=== PATIENT | female | born 1945 | race Caucasian/White ===

== ENCOUNTER → 2017-05-01 | Outpatient (CLI) | payer MEDICARE ==
[~2017-05-01] MED LIST: AUGM875T PO; LEVE500T8 PO; MISC-163; NAPR500T2 PO; PHEN100C PO; PHEN300C3 PO; TYLETAB34 PO; WALKER WHEELS/F1 MIS
== END ==
LOC: CLAB 11:04
PROVIDERS: ATTEND Psychiatry & Neurology Neurology
DX: G40.909 Epilepsy, unspecified, not intractable, without status epilepticus (principal)
CPT/HCPCS: 36415; 80177; 80185

== ENCOUNTER → 2017-06-09 | Outpatient (CLI) | payer MEDICARE | LOC: CLAB 11:11 | PROVIDERS: ATTEND Psychiatry & Neurology Neurology | DX: G40.909 Epilepsy, unspecified, not intractable, without status epilepticus (principal) | CPT/HCPCS: 36415; 80177; 80185 ==

== ENCOUNTER → 2017-09-08 | Outpatient (CLI) | payer MEDICARE ==
[2017-09-08 12:38] LABS: AUTOMATED NEUTROPHIL # 7.3 TH/MM3 (1.8-7.7); BASOPHIL # 0.1 TH/MM3 (0-0.2); BASOPHIL % 0.7 % (0.0-2.0); EOSINOPHIL # 0.3 TH/MM3 (0-0.4); EOSINOPHIL % 3.2 % (0.0-4.0); HEMATOCRIT 37.8 % (35.0-46.0); HEMOGLOBIN 13.5 GM/DL (11.6-15.3); LYMPH % 9.6 % (9.0-44.0); LYMPHOCYTE # 0.9 TH/MM3 (1.0-4.8); MEAN CELL VOLUME 91.9 FL (80.0-100.0); MEAN CORPUSCULAR HEMOGLOBIN 32.9 PG (27.0-34.0); MEAN CORPUSCULAR HGB CONC 35.8 % (32.0-36.0); MEAN PLATELET VOLUME 6.7 FL (7.0-11.0); MONO % 9.7 % (0.0-8.0); MONOCYTE # 0.9 TH/MM3 (0-0.9); NEUT % 76.8 % (16.0-70.0); PLATELET COUNT 282 TH/MM3 (150-450); RED BLOOD COUNT 4.11 MIL/MM3 (4.00-5.30); RED CELL DISTRIBUTION WIDTH 13.1 % (11.6-17.2); WHITE BLOOD COUNT 9.5 TH/MM3 (4.0-11.0)
[2017-09-08 12:44] LABS: BACTERIA, URINE RARE /hpf; BILIRUBIN, URINE NEG (NEG); BLOOD, URINE NEG (NEG); GLUCOSE,URINE NEG (NEG); HYALINE CAST, URINE 3 /lpf (RARE); KETONE, URINE NEG (NEG); MUCUS URINE FEW /lpf (OCC); NITRITE,URINE NEG (NEG); SQUAMOUS EPITHELIAL CELL URINE 3 /hpf (0-5); URINE COLOR YELLOW (YELLW/STRAW); URINE LEUKOCYTE ESTERASE LARGE (NEG)
[2017-09-08 13:05] LABS: AST (GOT) 23 U/L (15-37); BICARBONATE 33.5 MEQ/L (21.0-32.0); BLOOD UREA NITROGEN 23 MG/DL (7-18); CALCIUM 8.5 MG/DL (8.5-10.1); CHLORIDE 101 MEQ/L (98-107); GLOMERULAR FILTRATION RATE 99 ML/MIN (>89); GLUCOSE,FASTING 126 MG/DL (74-99); SODIUM (NA) 140 MEQ/L (136-145)
[2017-09-08 13:06] LABS: ALT (GPT) 17 U/L (10-53)
[2017-09-08 13:08] LABS: ALKALINE PHOSPHATASE 78 U/L (45-117); TOTAL BILIRUBIN ADULT 0.2 MG/DL (0.2-1.0); TOTAL PROTEIN 6.4 GM/DL (6.4-8.2)
== END ==
LOC: CLAB 11:52
PROVIDERS: ATTEND Psychiatry & Neurology Neurology
DX: G40.909 Epilepsy, unspecified, not intractable, without status epilepticus (principal); I10 Essential (primary) hypertension
CPT/HCPCS: 36415; 80053; 80177; 80185; 81001; 85025

== ENCOUNTER → 2017-10-10 | Outpatient (CLI) | payer MEDICARE | LOC: CLAB 13:56 | PROVIDERS: ATTEND Psychiatry & Neurology Neurology | DX: G40.909 Epilepsy, unspecified, not intractable, without status epilepticus (principal) | CPT/HCPCS: 36415; 80177; 80185 ==

== ENCOUNTER → 2017-10-17 | Outpatient (CLI) | payer MEDICARE | LOC: CLAB 10:47 | PROVIDERS: ATTEND Psychiatry & Neurology Neurology | DX: G40.909 Epilepsy, unspecified, not intractable, without status epilepticus (principal) | CPT/HCPCS: 36415; 80177; 80185 ==

== ENCOUNTER → 2017-10-20 | Outpatient (CLI) | payer MEDICARE ==
[2017-10-20 12:35] LABS: GLUCOSE,FASTING 82 MG/DL (74-99)
== END ==
LOC: CLAB 11:26
PROVIDERS: ATTEND Family Medicine
DX: R30.0 Dysuria (principal); R73.01 Impaired fasting glucose
CPT/HCPCS: 36415; 82947; 83036

== ENCOUNTER → 2017-10-31 | Outpatient (CLI) | payer MEDICARE | LOC: CLAB 11:15 | PROVIDERS: ATTEND Psychiatry & Neurology Neurology | DX: G40.909 Epilepsy, unspecified, not intractable, without status epilepticus (principal) | CPT/HCPCS: 36415; 80177; 80185 ==

== ENCOUNTER 2017-11-13 12:32 | Emergency (ER) | payer MEDICARE ==
[~2017-11-13] VITALS: Ht 162.6 cm; Wt 60.0 kg
[2017-11-13 12:40] VITALS: BP 156/70; PULSE 77; RESP 16; TEMP 98; O2SAT 99
[2017-11-13] MEDS ORDERED: SODIUM CHLOR 0.9% 1000 ML INJ 1,000 ML IV SCH (13:19)
[2017-11-13] MEDS ORDERED: KETOROLAC TROMETHAMINE 30 MG/ML (IVP) VIAL IVP ONE (13:30)
[2017-11-13] MEDS ORDERED: ONDANSETRON ODT 4 MG TAB PO ONE (13:30)
[2017-11-13] MEDS ORDERED: SODIUM CHLORIDE 0.9% FLUSH 10 ML FLUSH IV FLUSH PRN (13:30)
[2017-11-13] MEDS ORDERED: PANT20TA2 PO (14:05)
[2017-11-13 14:07] LABS: AUTOMATED NEUTROPHIL # 8.5 TH/MM3 (1.8-7.7); BASOPHIL # 0.1 TH/MM3 (0-0.2); BASOPHIL % 0.9 % (0.0-2.0); EOSINOPHIL # 0.2 TH/MM3 (0-0.4); EOSINOPHIL % 1.8 % (0.0-4.0); HEMATOCRIT 40.1 % (35.0-46.0); HEMOGLOBIN 13.6 GM/DL (11.6-15.3); LYMPH % 7.8 % (9.0-44.0); LYMPHOCYTE # 0.8 TH/MM3 (1.0-4.8); MEAN CELL VOLUME 94.4 FL (80.0-100.0); MEAN CORPUSCULAR HEMOGLOBIN 32.1 PG (27.0-34.0); MEAN PLATELET VOLUME 6.8 FL (7.0-11.0); MONO % 6.1 % (0.0-8.0); MONOCYTE # 0.6 TH/MM3 (0-0.9); NEUT % 83.4 % (16.0-70.0); PLATELET COUNT 230 TH/MM3 (150-450); RED BLOOD COUNT 4.25 MIL/MM3 (4.00-5.30); RED CELL DISTRIBUTION WIDTH 12.9 % (11.6-17.2); WHITE BLOOD COUNT 10.3 TH/MM3 (4.0-11.0)
[2017-11-13 14:26] LABS: AST (GOT) 13 U/L (15-37); BICARBONATE 26.5 MEQ/L (21.0-32.0); BLOOD UREA NITROGEN 15 MG/DL (7-18); CALCIUM 8.3 MG/DL (8.5-10.1); CHLORIDE 110 MEQ/L (98-107); CREATININE 0.55 MG/DL (0.50-1.00); GLOMERULAR FILTRATION RATE 109 ML/MIN (>89); GLUCOSE,RANDOM 104 MG/DL (74-106); SODIUM (NA) 144 MEQ/L (136-145)
[2017-11-13 14:27] LABS: ALT (GPT) 16 U/L (10-53)
[2017-11-13 14:29] LABS: ALKALINE PHOSPHATASE 84 U/L (45-117); TOTAL BILIRUBIN ADULT 0.2 MG/DL (0.2-1.0); TOTAL PROTEIN 6.4 GM/DL (6.4-8.2)
--- NOTE | 2017-11-13 14:39 | PD ---
HPI Chief Complaint: GI Complaint Time Seen by Provider: 13:08 Travel History International Travel<30 days: No Contact w/Intl Traveler<30days: No Traveled to known affect area: No History of Present Illness HPI 72-year-old female presents to emergency department with complaint of nausea vomiting and upper abdominal pain 1 to 1-1/2 weeks. She thinks that her symptoms are related to not taking her Tylenol 3, pain medications, that she has been out of for 1 week. She says she cannot refill them until November 21. She takes Tylenol threes for her chronic right knee pain. Reports subjective fevers. Denies dysuria or change in stool. Has tried taking ibuprofen and Aleve, BC powder and says she vomits every time she takes it. She is denies vomiting unless she takes the [id number] medications. Symptoms are mild to moderate in severity. Vomiting is aggravated with taking [id number] pain medications. No vomiting when she does not take the ifsh-[id number] pain medications. History of perforated bowel and laparoscopic surgery by Dr. Palma. Her primary care provider is Dr. Coughlin. No known allergies. History of seizures and takes Dilantin and Keppra. Has no other medical complaints. No other modifying factors or associated signs and symptoms. PFSH Past Medical History Arthritis: Yes (hands/right knee) Asthma: No Blood Disorders: No Anxiety: No Depression: No Heart Rhythm Problems: No Cancer: No Cardiovascular Problems: No High Cholesterol: No Chemotherapy: No Chest Pain: No Congestive Heart Failure: No COPD: No Cerebrovascular Accident: No Diabetes: No Diminished Hearing: No Endocrine: No Gastrointestinal Disorders: Yes (vomiting, diarrhea) GERD: Yes Genitourinary: No Headaches: Yes (sinus headaches) Hepatitis: No Hiatal Hernia: No Hypertension: Yes (PAST, NOT CURRENTLY) Immune Disorder: No Kidney Stones: No Musculoskeletal: Yes Neurologic: Yes (SEIZURES) Psychiatric: No Reproductive: No Respiratory: Yes Immunizations Current: Yes Migraines: No Radiation Therapy: No Renal Failure: Yes (CHRONIC) Seizures: Yes Sleep Apnea: No Thyroid Disease: No Ulcer: No Tetanus Vaccination: Unknown Influenza Vaccination: No ?: Not Menopausal: Yes Past Surgical History Abdominal Surgery: Yes (GI BLOCKAGE REPAIR) Cardiac Surgery: No Ear Surgery: No Endocrine Surgery: No Eye Surgery: No Genitourinary Surgery: No Gynecologic Surgery: No Oral Surgery: No Pacemaker: No Thoracic Surgery: No Other Surgery: Yes (LAPAROSCOPIC ) Social History Alcohol Use: Yes (OCCASIONALLY) Tobacco Use: No Substance Use: No Allergies-Medications (Allergen,Severity, Reaction): Coded Allergies: No Known Allergies (Unverified Adverse Reaction, Unknown, 11/13/17) Reported Meds & Prescriptions Reported Meds & Active Scripts Active Miralax Powder (Polyethylene Glycol 3350 Powder) 17 Gm Powd 17 Gm PO DAILY 30 Days Mix and dissolve one measuring cap-ful (17 grams) in water or juice. Zofran Odt (Ondansetron Odt) 4 Mg Tab 4 Mg SL Q8HR PRN Keflex (Cephalexin) 500 Mg Cap 500 Mg PO Q12H 7 Days Reported Pantoprazole (Pantoprazole Sodium) 20 Mg Tab 20 Mg PO DAILY Levetiracetam 500 Mg Tab 500 Mg PO BID Naproxen 500 Mg Tab 500 Mg PO BID Tylenol-Codeine #3 (Acetaminophen-Codeine) 300-30 mg Tab 1-2 Tab PO Q8HR PRN Phenytoin Extended 300 Mg Cap 300 Mg PO HS Phenytoin Extended 100 Mg Cap 200 Mg PO AC BREAKFAST Levetiracetam 500 Mg Tab 500 Mg PO BID Review of Systems Except as stated in HPI: all other systems reviewed are Neg Physical Exam Narrative GENERAL: Well-nourished, well-developed female patient, in no acute distress; afebrile SKIN: Warm and dry. HEAD: Atraumatic. Normocephalic. EYES: Pupils equal and round. No scleral icterus. No injection or drainage. ENT: Mucosa pink and moist. Airway patent. NECK: Trachea midline. CARDIOVASCULAR: Regular rate and rhythm. No murmur appreciated. RESPIRATORY: No accessory muscle use. Clear to auscultation. Breath sounds equal bilaterally. GASTROINTESTINAL: Abdomen soft, tenderness on palpation to upper abdomen, nondistended. Hepatic and splenic margins not palpable. Bowel sounds are active 4 quadrants. Nonrigid. No guarding. BACK: No CVA tenderness. MUSCULOSKELETAL: No obvious deformities. No clubbing. No cyanosis. No edema. NEUROLOGICAL: Awake and alert. Oriented 3. No obvious cranial nerve deficits. Motor grossly within normal limits. Normal speech. PSYCHIATRIC: Appropriate mood and affect; insight and judgment normal. Data Data Last Documented VS Vital Signs Date Time Temp Pulse Resp B/P (MAP) Pulse Ox O2 Delivery O2 Flow Rate FiO2 11/13/17 17:29 11/13/17 16:53 64 18 100 11/13/17 12:40 98.0 Orders Orders Complete Blood Count With Diff (11/13/17 13:19) Comprehensive Metabolic Panel (11/13/17 13:19) Lipase (11/13/17 13:19) Urinalysis - C+S If Indicated (11/13/17 13:19) Iv Access Insert/Monitor (11/13/17 13:19) Sodium Chlor 0.9% 1000 Ml Inj (Ns 1000 M (11/13/17 13:19) Sodium Chloride 0.9% Flush (Ns Flush) (11/13/17 13:30) Ketorolac Inj (Toradol Inj) (11/13/17 13:30) Ondansetron Odt (Zofran Odt) (11/13/17 13:30) Ct Abd/Pel W Iv Contrast(Rout) (11/13/17 13:19) Iohexol 350 Inj (Omnipaque 350 Inj) (11/13/17 15:45) Urine Culture (11/13/17 15:00) Ed Discharge Order (11/13/17 17:10) Labs Laboratory Tests Test 11/13/17 13:40 11/13/17 15:00 White Blood Count 10.3 TH/MM3 Red Blood Count 4.25 MIL/MM3 Hemoglobin 13.6 GM/DL Hematocrit 40.1 % Mean Corpuscular Volume 94.4 FL Mean Corpuscular Hemoglobin 32.1 PG Mean Corpuscular Hemoglobin Concent 34.0 % Red Cell Distribution Width 12.9 % Platelet Count 230 TH/MM3 Mean Platelet Volume 6.8 FL Neutrophils (%) (Auto) 83.4 % Lymphocytes (%) (Auto) 7.8 % Monocytes (%) (Auto) 6.1 % Eosinophils (%) (Auto) 1.8 % Basophils (%) (Auto) 0.9 % Neutrophils # (Auto) 8.5 TH/MM3 Lymphocytes # (Auto) 0.8 TH/MM3 Monocytes # (Auto) 0.6 TH/MM3 Eosinophils # (Auto) 0.2 TH/MM3 Basophils # (Auto) 0.1 TH/MM3 CBC Comment DIFF FINAL Differential Comment Blood Urea Nitrogen 15 MG/DL Creatinine 0.55 MG/DL Random Glucose 104 MG/DL Total Protein 6.4 GM/DL Albumin 3.0 GM/DL Calcium Level 8.3 MG/DL Alkaline Phosphatase 84 U/L Aspartate Amino Transf (AST/SGOT) 13 U/L Alanine Aminotransferase (ALT/SGPT) 16 U/L Total Bilirubin 0.2 MG/DL Sodium Level 144 MEQ/L Potassium Level 4.2 MEQ/L Chloride Level 110 MEQ/L Carbon Dioxide Level 26.5 MEQ/L Anion Gap 8 MEQ/L Estimat Glomerular Filtration Rate 109 ML/MIN Lipase 87 U/L Urine Color ORANGE Urine Turbidity CLEAR Urine pH 5.0 Urine Specific [place] 1.027 Urine Protein NEG mg/dL Urine Glucose (UA) NEG mg/dL Urine Ketones NEG mg/dL Urine Occult Blood NEG Urine Nitrite POS Urine Bilirubin NEG Urine Urobilinogen 2.0 mg/dL Urine Leukocyte Esterase NEG Urine RBC 1 /hpf Urine WBC 2 /hpf Urine Squamous Epithelial Cells 1 /hpf Urine Bacteria RARE /hpf Urine Mucus FEW /lpf Microscopic Urinalysis Comment CULTURE INDICATED MDM Medical Decision Making Medical Screen Exam Complete: Yes Emergency Medical Condition: Yes Medical Record Reviewed: Yes Differential Diagnosis Opiate withdrawal, gastroenteritis, cholecystitis, pancreatitis Narrative Course 72-year-old female with upper abdominal pain, nausea, vomiting. She relates her symptoms to not taking her Tylenol threes for 1 week. I discussed the patient with Dr. Smith and she agrees with my plan of care. CBC, CMP, lipase , urinalysis, IV, IV fluids, Toradol, Zofran, CT abdomen/pelvis ordered. 1658: CBC, CMP, lipase unremarkable. Urinalysis with positive nitrates and signs of infection. Reflex to culture. Keflex will be prescribed for home. CT abdomen/pelvis conclude: Abdomen/Pelvis CT 11/13/17 1319 Signed Impressions: CONCLUSION: 1. Moderate to large amount of stool in the colon may reflect constipation alt turner the distal descending colon and sigmoid are decompressed. 2. Biliary ductal dilatation extending to the ampulla, significantly improved from prior exam. Again, etiology is unclear. 3. Otherwise, no acute abnormality in the abdomen or pelvis. 4. Stable additional ancillary findings, as above. Patient provided a copy of the CT report. I discussed findings of the CT scan with the patient and Dr. Smith, and Dr. Smith recommended a soapsuds enema. This was discussed with the patient and the patient refused the enema; she is asking for pain medication. I discussed possible consequences of not performing the enema and the patient continued to refuse. This was discussed with Dr. Smith in the enema was canceled. Keflex, MiraLAX and Zofran prescribed for home. Instructed patient to follow up with primary care provider. Patient verbalizes understanding and agreement with treatment plan. Patient is medically cleared and stable for discharge. Discussed reasons to return to the emergency department. Patient agrees with treatment plan. The patients vital signs are stable and the patient is stable for outpatient follow- up and treatment. Patient discharged home, stable and in no acute distress. Diagnosis Primary Impression: Nausea & vomiting Qualified Codes: R11.2 - Nausea with vomiting, unspecified Additional Impressions: Abdominal pain Qualified Codes: R10.10 - Upper abdominal pain, unspecified Urinary tract infection Qualified Codes: N39.0 - Urinary tract infection, site not specified Constipation Qualified Codes: K59.00 - Constipation, unspecified Referrals: [facility] Primary Care Physician Patient Instructions: Abdominal Pain (ED), Acute Nausea and Vomiting (ED), General Instructions, Opioid Withdrawal (ED), Urinary Tract Infection in Women ( ED) Additional Instructions: Take antibiotics as prescribed and complete full course Zofran as prescribed and as needed for nausea/vomiting Drink plenty of fluids Maintain good personal hygiene Increase fluid intake to prevent constipation MiraLAX as prescribed and as needed for constipation High-fiber diet Follow-up with primary care provider Return to the emergency department immediately with worsening of symptoms Med/Other Pt SpecificInfo: Prescription(s) given Scripts Polyethylene Glycol 3350 Powder (Miralax Powder) 17 Gm Powd 17 GM PO DAILY for Constipation for 30 Days, #1 CAN 0 Refills Mix and dissolve one measuring cap-ful (17 grams) in water or juice. Prov: Chrissie Jesus RANGE EXAMINER 11/13/17 Ondansetron Odt (Zofran Odt) 4 Mg Tab 4 MG SL Q8HR Y for Nausea/Vomiting, #10 TAB 0 Refills Prov: Chrissie Jesus RANGE EXAMINER 18 Cephalexin (Keflex) 500 Mg Cap 500 MG PO Q12H for Infection for 7 Days, #14 CAP 0 Refills Prov: Chrissie Jesus RANGE EXAMINER 11/13/17 Disposition: 01 DISCHARGE HOME Condition: Stable hCrissie Jesus Nov 13, 2017 14:38
[2017-11-13] MEDS ORDERED: IOHEXOL 350 MG/ML 10 ML VIAL (for RAD DIAG) IVCONTRAST ONE (15:45)
--- NOTE | 2017-11-13 16:02 | RADRPT ---
EXAM DATE: 11/13/2017 3:39 PM EDT AGE/SEX: 72 years / Female INDICATIONS: Abdominal pain, nausea, vomiting. CLINICAL DATA: This is the patient's initial encounter. Patient reports that signs and symptoms have been present for 1 day and indicates a pain score of 8/10. MEDICAL/SURGICAL HISTORY: Hypertension. Gastroesophageal reflux disease. Chronic renal failur e. Seizures. . GI Blockage repair ORAL CONTRAST: Prescribed oral contrast ingested. RADIATION DOSE: 5.07 CTDI (mGy) COMPARISON: [facility] [place], CT ABDOMEN & PELVIS W CONTRAST, 04/23/2016. . TECHNIQUE: Multiple contiguous axial images were obtained through the abdomen and pelvis following b olus infusion of 89 ml Omnipaque 350 (iohexol) nonionic water-soluble contrast as a single exam dos e. Prescribed oral contrast ingested. Using automated exposure control and adjustment of the mA and/ or kV according to patient size, the radiation dose was kept as low as reasonably achievable to obtai n optimal diagnostic quality images. FINDINGS: LOWER LUNGS: Focal atelectasis versus scarring in the left lung base. LIVER: Improved intra and extra hepatic biliary ductal dilatation extending to the ampulla. Gallblad diana is also normal in size. Liver otherwise demonstrates uniform density without focal mass or volume loss. SPLEEN: Stable complex 4.9 cm low-density mass in the spleen. PANCREAS: Unremarkable without mass or calcification. KIDNEYS: Kidneys demonstrate symmetrical enhancement without evidence for radiopaque renal calculi o r hydronephrosis. There is cortical scarring in the mid right kidney. Small hypodense cystic lesion i n the posterior mid right kidney is too small to fully characterize. ADRENAL GLANDS: Unremarkable. AORTA: Jeannine-aneurysmal. BOWEL/MESENTERY: Moderate to large amount of stool in the ascending, transverse and proximal descend ing colon. Distal descending colon, sigmoid and rectum are nearly completely decompressed. Surgical a nastomoses in the distal jejunum. Small bowel loops are normal in caliber without evidence for obstru ction. No free fluid or drainable fluid collection. No free air. ABDOMINAL WALL: Intact. RETROPERITONEUM: No evidence of adenopathy in the retrocrural, para-aortic, or deep pelvic regions. BLADDER: Contours are smooth. REPRODUCTIVE: No abnormal masses or calcifications seen. BONY STRUCTURES: Degenerative spondylosis of the lumbar spine. CONCLUSION: 1. Moderate to large amount of stool in the colon may reflect constipation although the distal desce nding colon and sigmoid are decompressed. 2. Biliary ductal dilatation extending to the ampulla, significantly improved from prior exam. Again , etiology is unclear. 3. Otherwise, no acute abnormality in the abdomen or pelvis. 4. Stable additional ancillary findings, as above. Electronically signed by: Heath Campbell MD 11/13/2017 4:01 PM EDT
[2017-11-13 16:15] LABS: BACTERIA, URINE RARE /hpf; BILIRUBIN, URINE NEG (NEG); BLOOD, URINE NEG (NEG); GLUCOSE,URINE NEG (NEG); KETONE, URINE NEG (NEG); MUCUS URINE FEW /lpf (OCC); NITRITE,URINE POS (NEG); SQUAMOUS EPITHELIAL CELL URINE 1 /hpf (0-5); URINE LEUKOCYTE ESTERASE NEG (NEG)
[2017-11-13 16:16] LABS: URINE COLOR ORANGE (YELLW/STRAW)
[2017-11-13 16:53] VITALS: BP 126/61; PULSE 64; RESP 18; O2SAT 100
[2017-11-13] MEDS ORDERED: ZOFR4TAB3 SL (17:04)
[2017-11-13] MEDS ORDERED: CEPH-460 PO (17:04)
[2017-11-13] MEDS ORDERED: MIRA3350 PO (17:07)
== END 2017-11-13 17:29 | disposition home or self-care (01) ==
LOC: NEPD 12:32
DX: R11.2 Nausea with vomiting, unspecified (principal); R10.10 Upper abdominal pain, unspecified; N39.0 Urinary tract infection, site not specified; K59.00 Constipation, unspecified; G89.29 Other chronic pain; M25.561 Pain in right knee; R50.9 Fever, unspecified; R56.9 Unspecified convulsions; K21.9 Gastro-esophageal reflux disease without esophagitis
CPT/HCPCS: 74177; 80053; 81001; 83690; 85025; 87086; 96374; 99285; J1885; J7030; Q9967

== ENCOUNTER → 2017-11-15 | Outpatient (CLI) | payer MEDICARE ==
[~2017-11-15] MED LIST changes: -AUGM875T PO; +CEPH-460 PO; +MIRA3350 PO; -MISC-163; +PANT20TA2 PO; -WALKER WHEELS/F1 MIS; +ZOFR4TAB3 SL
== END ==
LOC: CLAB 12:30
PROVIDERS: ATTEND Family Medicine
DX: G40.909 Epilepsy, unspecified, not intractable, without status epilepticus (principal)
CPT/HCPCS: 36415; 80177; 80185